=== PATIENT | female | born 1995 | race Asian ===

== ENCOUNTER 2017-04-09 09:21 | Emergency (ER) | payer OTHER ==
[~2017-04-09] VITALS: Ht 149.9 cm; Wt 59.0 kg
[2017-04-09 10:34] VITALS: BP 120/62; TEMP 98.6
== END 2017-04-09 10:35 | disposition home or self-care (01) ==
LOC: ED 09:21
PROC: 2W3CX1Z Immobilization of Right Lower Arm using Splint (ICD-10-PCS; principal; 2017-04-09)
DX: S60.211A Contusion of right wrist, initial encounter (principal); S60.221A Contusion of right hand, initial encounter; S63.501A Unspecified sprain of right wrist, initial encounter; S63.91XA Sprain of unspecified part of right wrist and hand, initial encounter; S66.911A Strain of unspecified muscle, fascia and tendon at wrist and hand level, right hand, initial encounter; W22.8XXA Striking against or struck by other objects, initial encounter; Y92.098 Other place in other non-institutional residence as the place of occurrence of the external cause
CPT/HCPCS: 99283

== ENCOUNTER 2017-06-15 14:13 | Emergency (ER) | payer OTHER ==
[~2017-06-15] VITALS: Ht 149.9 cm; Wt 59.0 kg
[2017-06-15 15:11] LABS: PLATELET COUNT 364 K/uL (152-353)
[2017-06-15 15:24] LABS: POTASSIUM 3.7 mmol/L (3.6-5.2)
[2017-06-15 16:10] VITALS: BP 118/76; TEMP 97.9
== END 2017-06-15 16:10 | disposition home or self-care (01) ==
LOC: ED 14:13
PROVIDERS: Emergency Medicine
DX: O21.9 Vomiting of pregnancy, unspecified (principal); Z3A.08 8 weeks gestation of pregnancy
CPT/HCPCS: 36415; 80053; 81000; 81025; 84702; 85027; 96365; 96374; 96376; 99284; J2405

== ENCOUNTER 2017-06-22 20:27 | Emergency (ER) | payer OTHER ==
[~2017-06-22] VITALS: Ht 149.9 cm; Wt 59.0 kg
[2017-06-22 22:04] VITALS: BP 110/76; TEMP 97.8
== END 2017-06-22 22:06 | disposition home or self-care (01) ==
LOC: ED 20:27
DX: E86.0 Dehydration (principal); R10.9 Unspecified abdominal pain; Z3A.09 9 weeks gestation of pregnancy
CPT/HCPCS: 81000; 96360; 99284

== ENCOUNTER 2017-08-29 19:18 | Emergency (ER) | payer OTHER ==
[~2017-08-29] VITALS: Ht 149.9 cm; Wt 60.8 kg
[2017-08-29 21:17] VITALS: BP 100/60; TEMP 97.9
== END 2017-08-29 21:26 | disposition short-term general hospital (02) ==
LOC: ED 19:18
DX: R10.84 Generalized abdominal pain (principal); W18.39XA Other fall on same level, initial encounter; Y93.89 Activity, other specified; Y92.89 Other specified places as the place of occurrence of the external cause; Y99.8 Other external cause status; Z33.1 Pregnant state, incidental
CPT/HCPCS: 81000; 99285

== ENCOUNTER 2017-08-29 21:31 | Outpatient (CLI) | payer OTHER | END 2017-08-29 22:45 | disposition short-term general hospital (02) | LOC: AMB 21:31 | DX: R10.84 Generalized abdominal pain (principal); W18.39XA Other fall on same level, initial encounter; Y93.89 Activity, other specified; Y92.89 Other specified places as the place of occurrence of the external cause; Y99.8 Other external cause status; Z33.1 Pregnant state, incidental | CPT/HCPCS: A0425; A0429 ==